=== PATIENT | male | born 1970 | race Two or more races ===

== ENCOUNTER 2017-07-10 07:04 | Emergency (ER) | payer MEDICAID ==
[~2017-07-10] VITALS: Ht 172.7 cm; Wt 83.9 kg
[2017-07-10] MEDS ORDERED: cloNIDine HCL 0.1 MG TAB ONE (07:21)
[2017-07-10] MEDS ORDERED: cloNIDine HCL 0.1 MG TAB PO ONE (07:30)
[2017-07-10] MEDS ORDERED: methylPREDNISolone SOD SUCC 125 MG/2 ML VL IM ONE (08:00)
[2017-07-10] MEDS ORDERED: diphenhdrAMINE HCL 25 MG CAP PO ONE (08:00)
[2017-07-10 08:03] VITALS: BP 124/89
== END 2017-07-10 08:24 | disposition home or self-care (01) ==
LOC: ER 07:04
DX: T78.40XA Allergy, unspecified, initial encounter (principal); I10 Essential (primary) hypertension; Y92.89 Other specified places as the place of occurrence of the external cause
CPT/HCPCS: 87804; 96372; 99284; J2930